=== PATIENT | male | born 1965 | race Caucasian/White ===

== ENCOUNTER 2021-08-17 13:17 | Emergency (ER) | payer MEDICAID, SELFPAY ==
--- NOTE | ~2021-08-17 | CT_ITS ---
EXAMINATION: CT HEAD, CT CERVICAL SPINE AND CT FACIAL BONES WITHOUT CONTRAST. CLINICAL INFORMATION: Nasal trauma, status post fall. COMPARISON: None TECHNIQUE: 5 mm thin axial and reformatted 2 mm thin sagittal and coronal images of brain were obtained. Subsequently axial 3 mm thin and reformatted 2 mm thin sagittal and coronal images of cervical spine were obtained. Lastly axial 3 mm thin and reformatted 1.5 mm thin sagittal and coronal images of facial bones were obtained. DLP [id number]. FINDINGS: BRAIN: There is no acute intra-axial, extra-axial bleed, masses or midline shift. There is no acute infarction evolution. The lateral ventricles are symmetrical in size and configuration without enlargement. The crespo to white matter differentiation is maintained normal. Bone windows reveal no calvarial abnormality. There is no scalp soft tissue abnormality. Bilateral paranasal sinuses and mastoid air cells are well-aerated. Mild deviation nasal septum to the left. CERVICAL SPINE: There is mild straightening of cervical lordosis. The vertebral heights and alignment is normal. The disc heights is maintained normal. There is no visible acute fracture, dislocation or subluxation seen. The craniovertebral junction is normal. There is mild degenerative spurring C1-C2 disc level. There is no lytic process. The prevertebral and paravertebral soft tissues are normal. The airway is widely patent bilateral parotid and submandibular glands are unremarkable. The thyroid lobes are symmetrical as well. FACIAL BONES: There is mild mucoperiosteal thickening bilateral maxillary, ethmoid and frontal sinuses. The bony sinus greer are intact. There is mild deviation of nasal septum to the left with somewhat symmetrical turbinates. The lamina papyracea and cribriform plate is normal. Bilateral nasal bones, maxillofacial and the mandible appear unremarkable. Bilateral TM joints are symmetrical and normal. Visualized bilateral parotid and submandibular glands are normal. No lytic or sclerotic process seen. CT/CT cervical spine wo con IMPRESSION: No acute intracranial process seen. There is no acute fracture, dislocation or subluxation in cervical spine. There is mild straightening of cervical lordosis likely spasm or positional. Chronic bilateral ethmoid, maxillary and frontal sinusitis. There is no maxillofacial, nasal or mandibular fracture.
[2021-08-17 13:28] VITALS: BP 182/98; PULSE 90; O2SAT 95
[2021-08-17 13:32] VITALS: BP 199/89; PULSE 78; RESP 20; TEMP 37; O2SAT 98; BMI 27.2
--- NOTE | 2021-08-17 13:37 | ECG_ITS ---
Test Reason : fall Blood Pressure : / mmHG Vent. Rate : 080 BPM Atrial Rate : 080 BPM P-R Int : 162 ms QRS Dur : 088 ms QT Int : 386 ms P-R-T Axes : 065 065 077 degrees QTc Int : 445 ms Normal sinus rhythm with sinus arrhythmia Possible Left atrial enlargement Minimal voltage criteria for LVH, may be normal variant ( Sokolow-Hedrick ) Borderline ECG No previous ECGs available Referred By: Dayana Arguello Electronically Signed By:KAREN KELSEY
--- NOTE | 2021-08-17 13:38 | ED.FALL ---
HPI - Fall General Chief Complaint: Fall Stated Complaint: fall - head injury Time Seen by Provider: 08/17/21 13:30 Source: patient, family and EMS Mode of arrival: EMS Limitations: no limitations History of Present Illness HPI Narrative: 56 y/o male with history of opioid use disorder on methadone, hx chronic right knee pain s/p surgery who presents to the ER via EMS after he fell while walking down the street. Patient reports his right knee gave out and he fell forward onto the pavement. He hit his face on the ground and states he lost consciousness for a second he thinks. He also sustained a laceration to the back of his scalp but he does not know how that happened if he fell face first. When he was on the ground he felt lightheaded. He reports 7/10 posterior headache. Denies chest pain, SOB, abdominal pain, or lightheadedness. He smells of alcohol and states he drank 1 beer an hour ago. He is on 40 mg of methadone daily and last took his dose at 11am. Denies other drug use. Has not been to a doctor in years. MD complaint: fall Onset (ago): minute(s) Fall from: standing Fall witnessed: no Place fall occurred: street Loss of consciousness: yes Prolonged down time: unclear Symptoms prior to fall: none Context: tripped/slipped Location of injury: head and face Location of injury - extremities: right: hand (superficial abrasions) Severity: moderate Severity scale (1-10): 7 Quality: aching and throbbing Associated symptoms (after fall): headache Related Data Previous Rx's Medication Instructions Recorded amlodipine 5 mg tablet (Norvasc) 5 mg PO DAILY #30 tab 08/17/21 Allergies Allergy/AdvReac Type Severity Reaction Status Date / Time No Known Allergies Allergy Unverified 02/03/20 16:03 [No Known Allergies*] Review of Systems Review of Systems: Constitutional: No Fever, No Chills ENT/Mouth: No sore throat, No Rhinorrhea, No Swallowing Difficulty Eyes: No Eye Pain, No Swelling, No Redness, No vision changes Cardiovascular: No Chest Pain, No SOB, No Orthopnea, No Edema Respiratory: No Cough, No Sputum, No Wheezing, No dyspnea Gastrointestinal: No Nausea, No Vomiting, No Diarrhea, No abdominal Pain, No Hematochezia, No Melena Genitourinary: No Dysuria, No Urinary Frequency, No Hematuria Musculoskeletal: + joint pain, No Myalgias Skin: + Skin Lesions, No rash Neuro: No Weakness, No Numbness, + Dizziness, + Headache Psych: + Anxiety/Panic, No Depression Heme/Lymph: No Bruising, No Lymphadenopathy Endocrine: No Polyuria, No Polydipsia [facility] Past Medical History Medical History (Updated 08/17/21 @ 17:58 by JORGE L Coulter) Asthma HTN (hypertension) Surgical History (Updated 08/17/21 @ 13:37 by Neva Kearney) Hx of knee surgery Social History Social History Advance Directives: No Advance Directives Information Provided: No Physical Exam Vital Signs: Vital Signs: Last Vital Signs Temp 98.6 F 08/17/21 13:32 Pulse 78 08/17/21 13:32 Resp 20 08/17/21 13:32 BP 199/89 H 08/17/21 13:32 Pulse Ox 98 08/17/21 13:32 BMI result Body Mass Index 27.2 Appearance: Alert. Oriented X3. No acute distress. Smells of alcohol Head/face: Several superficial abrasions to the forehead, bridge of the nose, upper lip. There is a 6 cm linear laceration to the posterior scalp with active oozing no palpable skull depression or fracture. Eyes: Pupils equal, round and reactive to light. EOMI no nystagmus ENT: Pharynx normal. Neck: Normal inspection. Neck supple. No midline tenderness CVS: Normal heart rate and rhythm. Pulses normal. No chest wall tenderness Respiratory: No respiratory distress. Breath sounds normal. Abdomen: Soft and nontender. +BS x4 Skin: Skin warm and dry. Normal skin color. Normal skin turgor. No rashes. Extremities: No lower extremity edema. Small superficial abrasions on the bilateral dorsal knuckles and hands. No active bleeding. Neuro: Oriented X 3. No motor deficit. No sensory deficit. Course Course Course Narrative: 56 y/o male with no reported medical history except for opioid use on methadone and right knee issues s/p surgery who presents with headache and head lac s/p mechanical fall on cement after his knee gave out. Review of records it appears he has a history of hepatitis C & HTN. Denies ongoing drug use. He is AAO x3, GCS 15. Denies pain other than headache. Will need jeanna to head lac and tetanus. He is hypertensive 190s systolic and is asymptomatic. Will get CT head/facial bone and C-spine. Labs and EKG ordered. Reevaluation(s) Reevaluation #1: ETOH 44. Labs with mild transaminitis likely related to ETOH and prior HCV. No RUQ tenderness. His CT scans show no traumatic injuries. Local wound care by tech of his abrasions. [place] closed scalp lac successfully. BP initially improved to 170s without treatment but are back up to 190s systolic now. He remains asymptomatic. He has a PCP and the methadone clinic wanted to start him on meds but it was never done. He denies being on antihypertensives but has a longstanding history of HTN. Will plan to start norvasc 5mg daily. Importance of compliance, followup up, lifestyle changes all discussed at length with patient and his girlfriend. At this time he stable for discharge home with close outpatient follow up. Procedures Laceration Laceration 1: Site: scalp Size (cm): 6 Description: linear Depth: simple, single layer Pre-repair: irrigated extensively and deep structures intact Skin layer closed with: other (jeanna, 6) MDM - Fall Medical Records Attestation: I reviewed the patient's medical records. Lab Data Attestation: I reviewed the patient's lab results. Result diagrams: 08/17/21 13:56 08/17/21 16:55 Labs: Lab Results 08/17/21 08/17/21 08/17/21 Range/Units 13:56 13:56 13:56 WBC 6.1 (4.8-10.8) X10*3/uL RBC 5.22 (4.60-5.80) X10*6/uL Hgb 16.3 (14.0-18.0) g/dl Hct 47.3 (42.0-52.0) % MCV 90.6 (80.0-98.0) fL MCH 31.2 (27.0-33.0) pg MCHC 34.5 (31.0-36.0) g/dl RDW 12.9 (11.0-16.0) % Plt Count 150 L (160-400) X10*3/uL MPV 8.6 L (9.4-12.4) fL Immature Gran % (Auto) 0.5 H (0.0-0.4) % Neut % (Auto) 75.6 H (45-73) % Lymph % (Auto) 10.7 L (20-40) % [place] % (Auto) 9.7 (2-11) % Eos % (Auto) 3.0 (0-4) % Baso % (Auto) 0.5 (0-2) % Lymph # (Auto) 0.7 L (1.2-4.9) X10*3/uL [place] # (Auto) 0.6 (0.1-1.2) X10*3/uL Eos # (Auto) 0.2 (0.0-0.4) X10*3/uL Baso # (Auto) 0.0 (0.0-0.2) X10*3/uL Abs Immat Gran (auto) 0.03 (0.00-0.03) X10*3/uL Absolute Neuts (auto) 4.6 (2.0-8.3) x10*3/uL Absolute Nucleated RBC 0.000 (0.0-0.012) X10*3/uL Nucleated RBC % (auto) 0.0 (0.0-0.2) /100WBC PT (9.9-13.0) SEC INR (0.9-1.1) APTT (24.1-38.0) SEC Sodium (135-145) mmol/L Potassium (3.3-5.1) mmol/L Chloride (96-108) mmol/L Carbon Dioxide (22-29) mmol/L Anion Gap (12-20) BUN (9-16) mg/dL Creatinine (0.5-1.4) mg/dL Estim Creat Clear Calc Estimated GFR Random Glucose (60-115) mg/dL Calcium (8.4-10.2) mg/dL Magnesium (1.6-2.6) mg/dL Total Bilirubin (0.0-1.0) mg/dL Direct Bilirubin (0.0-0.5) mg/dL AST (5-37) U/L ALT (0-40) U/L Alkaline Phosphatase (39-117) U/L Troponin I High Sens 4.9 (<3.5-35.0) ng/L Total Protein (6.5-8.0) g/dL Albumin (3.5-5.0) g/dL Ethyl Alcohol mg/dL COVID-19 ([facility]) Negative (Negative) COVID-19 Clin Com See Note 08/17/21 08/17/21 08/17/21 Range/Units 13:56 16:55 16:55 WBC (4.8-10.8) X10*3/uL RBC (4.60-5.80) X10*6/uL Hgb (14.0-18.0) g/dl Hct (42.0-52.0) % MCV (80.0-98.0) fL MCH (27.0-33.0) pg MCHC (31.0-36.0) g/dl RDW (11.0-16.0) % Plt Count (160-400) X10*3/uL MPV (9.4-12.4) fL Immature Gran % (Auto) (0.0-0.4) % Neut % (Auto) (45-73) % Lymph % (Auto) (20-40) % [place] % (Auto) (2-11) % Eos % (Auto) (0-4) % Baso % (Auto) (0-2) % Lymph # (Auto) (1.2-4.9) X10*3/uL [place] # (Auto) (0.1-1.2) X10*3/uL Eos # (Auto) (0.0-0.4) X10*3/uL Baso # (Auto) (0.0-0.2) X10*3/uL Abs Immat Gran (auto) (0.00-0.03) X10*3/uL Absolute Neuts (auto) (2.0-8.3) x10*3/uL Absolute Nucleated RBC (0.0-0.012) X10*3/uL Nucleated RBC % (auto) (0.0-0.2) /100WBC PT 12.2 (9.9-13.0) SEC INR 1.1 (0.9-1.1) APTT 36.6 (24.1-38.0) SEC Sodium 134 L (135-145) mmol/L Potassium 4.4 (3.3-5.1) mmol/L Chloride 97 (96-108) mmol/L Carbon Dioxide 28 (22-29) mmol/L Anion Gap 13 (12-20) BUN 8 L (9-16) mg/dL Creatinine 0.75 (0.5-1.4) mg/dL Estim Creat Clear Calc 116.2 Estimated GFR > 60 Random Glucose 97 (60-115) mg/dL Calcium 9.7 (8.4-10.2) mg/dL Magnesium 2.5 (1.6-2.6) mg/dL Total Bilirubin 0.9 (0.0-1.0) mg/dL Direct Bilirubin 0.5 (0.0-0.5) mg/dL AST 153 H (5-37) U/L ALT 158 H (0-40) U/L Alkaline Phosphatase 103 (39-117) U/L Troponin I High Sens (<3.5-35.0) ng/L Total Protein 7.9 (6.5-8.0) g/dL Albumin 4.4 (3.5-5.0) g/dL Ethyl Alcohol 44 mg/dL COVID-19 ([facility]) (Negative) COVID-19 Clin Com ECG Data Attestation: I personally reviewed and interpreted this ECG as follows: ECG interpretation date: 08/17/21 ECG interpretation time: 13:52 Interpretation: normal sinus rhythm with sinus arrythmia, HR 80 bpm, normal [place] interval, peaked t waves present, no ST segment elevations or depressions Discharge Plan Discharge Clinical Impression: Laceration of head, Hypertension Patient Disposition: Home, Self-Care Instructions: Hypertension (ED), Head Laceration (ED) Additional Instructions: Six jeanna were used to close your head laceration today. These will need to be removed in 7 days. You can see your doctor for this or come back to the ER. Your blood pressure was significantly elevated while in the emergency room today please take the prescribed medication for your blood pressure once per day. You must follow-up with your doctor as soon as possible for further monitoring and treatment. You develop chest pain, headaches, vision changes or any other concerning symptoms call 911 or come back to the ER for further evaluation. Prescriptions: New amlodipine [Norvasc] 5 mg tablet 5 mg PO DAILY Qty: 30 0RF Referrals: Maria Del Rosario Camp USED [employer]PER[employer]OR [Primary Care Provider] - 1 week (Hypertension)
[2021-08-17 14:00] LABS: MANUAL DIFF FLAG NO
[2021-08-17 14:05] LABS: Basophils Percent Auto 0.5 % (0-2); Eosinophils Absolute Auto 0.2 X10*3/uL (0.0-0.4); Hematocrit 47.3 % (42.0-52.0); Hemoglobin 16.3 g/dl (14.0-18.0); Imm Gran Abs Auto 0.03 X10*3/uL (0.00-0.03); Imm Gran Pct Auto 0.5 % (0.0-0.4); Lymphocytes Absolute Auto 0.7 X10*3/uL (1.2-4.9); Lymphocytes Percent Auto 10.7 % (20-40); Mean Corpuscular HGB Conc 34.5 g/dl (31.0-36.0); Mean Corpuscular Hemoglobin 31.2 pg (27.0-33.0); Mean Corpuscular Volume 90.6 fL (80.0-98.0); Mean Platelet Volume 8.6 fL (9.4-12.4); Monocytes Absolute Auto 0.6 X10*3/uL (0.1-1.2); Monocytes Percent Auto 9.7 % (2-11); Neutrophils Absolute Auto 4.6 x10*3/uL (2.0-8.3); Neutrophils Percent Auto 75.6 % (45-73); Platelet Count 150 X10*3/uL (160-400); Red Blood Count 5.22 X10*6/uL (4.60-5.80); Red Cell Distribution Width 12.9 % (11.0-16.0); White Blood Count 6.1 X10*3/uL (4.8-10.8)
[2021-08-17] MEDS: Lidocaine 4 % Cream KIT 1 APPL TOPICAL (14:13)
[2021-08-17 14:17] LABS: Ethanol 44 mg/dL
[2021-08-17 14:24] LABS: Troponin-I High Sensitivity 4.9 ng/L (<3.5-35.0)
[2021-08-17 14:30] LABS: COVID-19 Test Negative (Negative)
[2021-08-17 17:12] LABS: INTERNATIONAL NORM RATIO 1.1 (0.9-1.1); Prothrombin Time 12.2 SEC (9.9-13.0)
[2021-08-17 17:15] LABS: Partial Thromboplastin Time 36.6 SEC (24.1-38.0)
[2021-08-17 17:23] LABS: Alanine Aminotransferase 158 U/L (0-40); Albumin Level 4.4 g/dL (3.5-5.0); Alkaline Phosphatase 103 U/L (39-117); Anion Gap 13 (12-20); Aspartate Amino Transferase 153 U/L (5-37); Bilirubin Direct 0.5 mg/dL (0.0-0.5); Bilirubin Total 0.9 mg/dL (0.0-1.0); Blood Urea Nitrogen 8 mg/dL (9-16); Calcium 9.7 mg/dL (8.4-10.2); Carbon Dioxide 28 mmol/L (22-29); Chloride 97 mmol/L (96-108); Creatinine Clr Calc Pharmacy 116.2; Estimated Glomerular Filt Rate > 60; Glucose Random 97 mg/dL (60-115); Magnesium 2.5 mg/dL (1.6-2.6); Potassium 4.4 mmol/L (3.3-5.1); Sodium 134 mmol/L (135-145); Total Protein 7.9 g/dL (6.5-8.0)
[2021-08-17] MEDS: amLODIPine Besylate 5 MG TABLET PO (17:51)
[2021-08-17 17:52] VITALS: BP 196/94; PULSE 79; RESP 20; TEMP 36.9; O2SAT 97
[2021-08-17 18:25] VITALS: BP 172/70; PULSE 80
== END 2021-08-17 18:27 | disposition home or self-care (01) ==
PROVIDERS: Physician Assistant; Emergency Provider Emergency Medicine; PCP Nurse Practitioner Primary Care
DX: R51.9 Headache, unspecified (principal); S01.01XA Laceration without foreign body of scalp, initial encounter; S00.31XA Abrasion of nose, initial encounter; S00.511A Abrasion of lip, initial encounter; S00.81XA Abrasion of other part of head, initial encounter; S60.512A Abrasion of left hand, initial encounter; S60.511A Abrasion of right hand, initial encounter; W01.198A Fall on same level from slipping, tripping and stumbling with subsequent striking against other object, initial encounter; I10 Essential (primary) hypertension; F10.920 Alcohol use, unspecified with intoxication, uncomplicated; Y90.2 Blood alcohol level of 40-59 mg/100 ml; F11.20 Opioid dependence, uncomplicated; Y93.01 Activity, walking, marching and hiking; Y92.480 Sidewalk as the place of occurrence of the external cause; Y99.9 Unspecified external cause status; Z20.822 Contact with and (suspected) exposure to COVID-19
CPT/HCPCS: 12002; 70450; 70486; 72125; 80048; 80076; 82077; 83735; 84484; 85025; 85610; 85730; 87635; 93005; 99284

== ENCOUNTER 2021-08-30 09:13 | Emergency (ER) | payer MEDICAID, SELFPAY ==
--- NOTE | 2021-08-30 09:39 | ED_ITS ---
HPI - General Adult General Chief complaint: Wound/Laceration Stated complaint: sutrure removal Time Seen by Provider: 08/30/21 09:20 Source: patient and family Mode of arrival: ambulatory Limitations: no limitations History of Present Illness HPI narrative: 56-year-old male here for staple removal. Patient tells me he was seen here 08/17 for a fall with a head strike with 6 jeanna placed. Patient here for removal. Patient tells me he does have some slight discomfort at the site. He tells me he has not been washing his hair since the fall or cleaning the site Related Data Previous Rx's Medication Instructions Recorded amlodipine 5 mg tablet (Norvasc) 5 mg PO DAILY #30 tab 08/17/21 doxycycline monohydrate 100 mg 100 mg PO BID #20 tab 08/30/21 tablet Allergies Allergy/AdvReac Type Severity Reaction Status Date / Time No Known Allergies Allergy Unverified 02/03/20 16:03 [No Known Allergies*] Review of Systems Review of Systems: Yes all other systems are reviewed and are negative Constitutional: Constitutional: Reports no additional constitutional complaints, Denies chills and Denies fever(s) Eyes: Eyes: Reports no additional eye complaints and Denies eye discharge ENT: Reports system reviewed and no additional complaints, except as documented, Denies nasal congestion and Denies nasal discharge Cardiovascular: Cardiovascular: Reports no additional cardiovascular complaints, Denies chest pain and Denies dyspnea Respiratory: Respiratory: Reports no additional respiratory complaints, Denies cough and Denies dyspnea Gastrointestinal: Gastrointestinal: Reports no additional gastrointestinal complaints, Denies abdominal pain, Denies diarrhea, Denies nausea and Denies vomiting Musculoskeletal: Musculoskeletal: Reports no additional musculoskeletal com plaints and Denies back pain Integumentary/Breasts: Skin/Breast: Reports system reviewed and no additional complaints, except as docu and Denies rash Neurologic: Reports system reviewed and no additional complaints, except as documented PMFSH Past Medical History Attestation statement: The following information was validated with the patient. Source: old records reviewed and nursing notes reviewed Medical History Asthma HTN (hypertension) Surgical History Hx of knee surgery Social History Social History Advance Directives: No Advance Directives Information Provided: No Physical Exam ED Vital Signs: Vital Signs - 24 hr 08/30/21 09:45 08/30/21 09:52 Temperature 97.3 F 97.3 F Pulse Rate 80 80 Respiratory Rate 16 Blood Pressure 196/85 H 156/85 H Pulse Oximetry 97 97 BMI result Body Mass Index 24.7 Const General: cooperative Orientation/consciousness: patient oriented x3 Limitations: no limitations HENMT Head: Yes normal to inspection Head images: 1. [place] present-surrounding erythema/tenderness. Expressed 1ml of purulent drainage from the site Ears: hearing grossly normal bilaterally General nose exam: Normal external nose present Face and sinus: Yes normal facial exam Mouth: Normal oral and palatal mucosa present Eyes General: appearance normal, both eyes and all related structures Neck Neck: Yes normal visual inspection Chest Chest palpation & inspection: normal inspection of the chest Resp Effort & Inspection: normal respiratory effort Auscultation: clear to auscultation bilaterally Cardio Peripheral pulses: Peripheral pulses 2+ throughout Neuro General: patient oriented x3 and moves all extremities Course Course Course Narrative: 56 yo male here for staple removal from head after they were placed 08/17. Unfortunately the patient has not been washing his hair or cleaning the site. On exam he does have some surrounding warmth, redness, tenderness I was able to express about 1 mL of purulent drainage from the site after I removed the jeanna. Will start the patient on oral antibiotics. Recommended cleaning the site with peroxide and washing his hair daily. Reviewed worrisome signs and symptoms of when to return to the emergency department. Comfortable discharge home. Procedures Procedure Narrative Procedure Narrative: The scalp was cleansed with hydrogen peroxide. Six jeanna were removed. The wound was cleansed after that. There is a slight wound infection noted Discharge Plan Discharge Clinical Impression: Removal of staple, Infected laceration Patient Disposition: Home, Self-Care Instructions: Wound Infection (DC) Additional Instructions: Wash head with soap and water You may apply hydrogen peroxide on a clean gauze and let it soak for 15 minutes prior to this Prescriptions: New doxycycline monohydrate 100 mg tablet 100 mg PO BID Qty: 20 0RF No Action amlodipine [Norvasc] 5 mg tablet 5 mg PO DAILY Qty: 30 0RF Referrals: Camp,Maria Del Rosario, STAFF [employer] OFFICER [Primary Care Provider] - 5 days (As needed) Interventions: ED Discharge Assessment Last Done: 08/30/21 10:05 Discharge Date/Time: 08/30/21 10:07
[2021-08-30 09:45] VITALS: BP 196/85; PULSE 80; TEMP 36.3; O2SAT 97
[2021-08-30 09:52] VITALS: BP 156/85; PULSE 80; RESP 16; TEMP 36.3; O2SAT 97; BMI 24.7
== END 2021-08-30 10:07 | disposition home or self-care (01) ==
PROVIDERS: Emergency Provider Emergency Medicine; PCP Nurse Practitioner Primary Care
DX: L03.811 Cellulitis of head [any part, except face] (principal); Z48.02 Encounter for removal of sutures; S01.01XD Laceration without foreign body of scalp, subsequent encounter; W01.10XD Fall on same level from slipping, tripping and stumbling with subsequent striking against unspecified object, subsequent encounter
CPT/HCPCS: 99284